=== PATIENT | female | born 1985 | race Caucasian/White ===

== ENCOUNTER 2019-04-29 09:20 | Emergency (ER) | payer MEDICAID ==
[~2019-04-29] VITALS: Ht 154.9 cm; Wt 68.1 kg
--- NOTE | 2019-04-29 09:30 | NUR ---
Patient ambulated to bed 8. RN evaluating patient at bedside.
[2019-04-29 09:31] VITALS: BP 126/83
--- NOTE | 2019-04-29 09:33 | NUR ---
urine cup handed to pt for sample
--- NOTE | 2019-04-29 09:34 | NUR ---
33/F BIB SELF c/o N/V, LLQ ABDOMINAL PAIN with light vag bleeding and ruiz dc x yesterday.ABDOMEN SOFT. PATIENT STATES PAIN OF 8/10 AT THIS TIME. PATIENT POSITIONED FOR COMFORT; HOB ELEVATED; BEDRAILS UP X1; BED DOWN. ER MD MADE AWARE OF PT STATUS.
[2019-04-29] MEDS ORDERED: KETOROLAC 60 MG/2 ML VIAL IM ONE (10:20)
--- NOTE | 2019-04-29 10:36 | NUR ---
PT STATED SHE IS UNABLE TO PROVIDE URINE AT THIS TIME.
--- NOTE | 2019-04-29 11:11 | NUR ---
Dr. Jeff is evaluating the patient at bedside.
[2019-04-29 11:21] VITALS: BP 119/78
--- NOTE | 2019-04-29 11:21 | NUR ---
Patient discharged with v/s stable. Written and verbal after care instructions given and explained. Patient alert, oriented and verbalized understanding of instructions. Ambulatory with steady gait. All questions addressed prior to discharge. ID band removed. Patient advised to follow up with PMD. Rx of MOTRIN, CIPRO & ZOFRAN given. Patient educated on indication of medication including possible reaction and side effects. Opportunity to ask questions provided and answered.
== END 2019-04-29 11:21 | disposition home or self-care (01) ==
LOC: MED 09:20
DX: N39.0 Urinary tract infection, site not specified (principal); R11.2 Nausea with vomiting, unspecified; Z90.710 Acquired absence of both cervix and uterus
CPT/HCPCS: 81002; 81025; 96372; 99283; J1885; C1758